=== PATIENT | male | born 1990 | race Two or more races ===

== ENCOUNTER 2019-12-14 11:41 | Emergency (ER) | payer SELFPAY ==
[~2019-12-14] VITALS: Ht 180.3 cm; Wt 70.0 kg
--- NOTE | 2019-12-14 12:25 | PHYS DOC ---
General Adult EDM: Chief Complaint: SHORTNESS OF BREATH HPI: HPI: Patient is a 29 year old male, brought to the emergency department by EMS with reports of an asthma attack. Per EMS on arrival patient's oxygen saturation was in the 80s, they gave him a breathing treatment and 125 mg of IV Solu-Medrol. The patient's breathing and lung sounds improved and patient oxygen saturation is 99% on arrival. Patient reports a history of asthma, he states that he has been out of his asthma medication, albuterol, for several months. He reports that in June of this year he had to be intubated because of his asthma. Patient denies any recent fever, cough, runny nose, chest pain, palpitations, abdominal pain, nausea, vomiting, diarrhea, or sore throat. He currently denies any complaints, he reports he is breathing better. He denies any pain at this time. Patient states he is unemployed and denies any COVID-19 symptoms or exposure. (BRYAN OLIVERA APRN) Review of Systems: Review of Systems: Constitutional: Denies fever or chills. [] Eyes: Denies change in visual acuity. [] HENT: Denies nasal congestion or sore throat. [] Respiratory: See HPI Cardiovascular: Denies chest pain or edema. [] GI: Denies abdominal pain, nausea, vomiting, or diarrhea. [] Musculoskeletal: Denies back pain or joint pain. [] Integument: Denies rash. [] Neurologic: Denies headache, focal weakness or sensory changes. [] (BRYAN OLIVERA APRN) Heart Score: Risk Factors: Risk Factors: DM, Current or recent (<one month) smoker, HTN, HLP, family history of CAD, obesity. Risk Scores: Score 0 - 3: 2.5% MACE over next 6 weeks - Discharge Home Score 4 - 6: 20.3% MACE over next 6 weeks - Admit for Clinical Observation Score 7 - 10: 72.7% MACE over next 6 weeks - Early Invasive Strategies (BRYAN OLIVERA APRN) Physical Exam: PE: Constitutional: Well developed, well nourished, no acute distress, non-toxic appearance. [] HENT: Normocephalic, atraumatic, bilateral external ears normal, oropharynx moist, no oral exudates, nose normal. [] Eyes: PERRLA, EOMI, conjunctiva normal, no discharge. [] Neck: Normal range of motion, no stridor. [] Cardiovascular:Heart rate regular rhythm Lungs & Thorax: Bilateral breath sounds clear to auscultation, Respirations even and unlabored, no retractions, no respiratory distress [] Skin: Warm, dry, no erythema, no rash. [] Back: No tenderness] Extremities: No cyanosis, no clubbing, ROM intact, no edema. [] Neurologic: Alert and oriented X 3, no focal deficits noted. [] Psychologic: Affect normal, judgement normal, mood normal. [] (BRYAN OLIVERA APRN) EKG: EKG: [] (BRYAN OLIVERA APRN) Radiology/Procedures: Radiology/Procedures: [] (BRYAN OLIVERA APRN) Course & Med Decision Making: Course & Med Decision Making Pertinent Labs and Imaging studies reviewed. (See chart for details) [] (BRYAN OLIVERA APRN) Dragon Disclaimer: Dragon Disclaimer: This electronic medical record was generated, in whole or in part, using a voice recognition dictation system. (BRYAN OLIVERA APRN) Departure Departure Impression: Primary Impression: Asthma with acute exacerbation Qualified Codes: J45.21 - Mild intermittent asthma with (acute) exacerbation Disposition: 01 HOME, SELF-CARE Condition: STABLE Patient Instructions: Asthma Attacks, Prevention, Asthma, Adult, [id number] Additional Instructions: Fill prescription(s) and use as directed. Avoid airway triggers such as smoke, fragrance, dust, and pollen. Follow-up with a primary care doctor for management of your asthma. Return to the ER if symptoms worsen. Scripts Prednisone (PREDNISONE) 50 Mg Tablet 1 TAB PO DAILY for 5 Days, #5 TAB 0 Refills start taking on 12/15/19 Prov: BRYAN OLIVERA APRN 12/14/19 Albuterol Sulfate (Proair Hfa) 8.5 Gm Hfa.aer.ad 2 PUFF IH PRN Q4-6HRS PRN for wheezing for 21 Days, #1 INHALER 0 Refills Prov: BRYAN OLIVERA APRN 12/14/19 Justicifation of Admission Dx: Justifications for Admission: Justification of Admission Dx: N/A (BRYAN OLIVERA APRN) Attending Signature Attending Signature I have participated in the care of this patient and I have reviewed and agree with all pertinent clinical information above including history, exam, and recommendations. (MICHAEL PRATT DO) BRYAN OLIVERA APRN Dec 14, 2019 12:25 MICHAEL PRATT DO Dec 14, 2019 15:11
[2019-12-14 12:43] VITALS: BP 143/98
[2019-12-14] MEDS ORDERED: ALBU2.5V8 IH (12:48)
[2019-12-14] MEDS ORDERED: PRED50TA PO (12:50)
== END 2019-12-14 13:13 | disposition home or self-care (01) ==
LOC: ER 11:41
DX: J45.21 Mild intermittent asthma with (acute) exacerbation (principal)
CPT/HCPCS: 99283

== ENCOUNTER 2021-04-30 21:03 | Emergency (ER) | payer SELFPAY ==
[~2021-04-30] VITALS: Ht 177.8 cm; Wt 70.0 kg
[~2021-04-30 21:03] MED LIST: ALBU2.5V8 IH; PRED50TA PO
[2021-04-30 21:26] VITALS: BP 128/71
--- NOTE | 2021-04-30 22:17 | PHYS DOC ---
Past Medical History Past Medical History: Asthma (KAROLINA NICOLAS APRN) Past Surgical History: No Surgical History (KAROLINA INCOLAS APRN) Smoking Status: Never Smoker Alcohol Use: Rarely (KAROLINA NICOLAS APRN) General Adult EDM: Chief Complaint: EARACHE/EAR PAIN HPI: HPI: Patient is a 31-year-old male who presents to the emergency department with complaint of bilateral ear pain for the past 6 days, patient denies taking any pain medications or trying other nonpharmacological pain therapies, patient denies recent fever or chills, denies nasal or chest congestion, denies throat pain or sore throat, denies chest pains or shortness of breath, denies rashes to his skin. Patient denies other physical complaints or physical concerns. Patient reports a 7 out of 10 pain. (KAROLINA NICOLAS APRN) Review of Systems: Review of Systems: 14 body systems of review of systems have been reviewed. See HPI for pertinent positives and negative responses, otherwise all other systems are negative, nonpertinent or noncontributory. Constitutional: Negative except as outlined in HPI above. Skin: Negative except as outlined in HPI above. Eyes: Negative except as outlined in HPI above. HENT: Negative except as outlined in HPI above. Respiratory: Negative except as outlined in HPI above. Cardiovascular: Negative except as outlined in HPI above. GI: Negative except as outlined in HPI above. : Negative except as outlined in HPI above. Musculoskeletal: Negative except as outlined in HPI above. Integument: Negative except as outlined in HPI above. Neurologic: Negative except as outlined in HPI above. Endocrine: Negative except as outlined in HPI above. Lymphatic: Negative except as outlined in HPI above. Psychiatric: Negative except as outlined in HPI above. (KAROLINA NICOLAS APRN) Heart Score: C/O Chest Pain: No Risk Factors: Risk Factors: DM, Current or recent (<one month) smoker, HTN, HLP, family history of CAD, obesity. Risk Scores: Score 0 - 3: 2.5% MACE over next 6 weeks - Discharge Home Score 4 - 6: 20.3% MACE over next 6 weeks - Admit for Clinical Observation Score 7 - 10: 72.7% MACE over next 6 weeks - Early Invasive Strategies (KAROLINA NICOLAS APRN) Allergies: Allergies: Allergies Coded Allergies Type Severity Reaction Last Updated Verified No Known Drug Allergies 04/30/21 No (KAROLINA NICOLAS APRN) Physical Exam: PE: Constitutional: Well developed, well nourished, no acute distress, non-toxic appearance. 31-year-old in no apparent distress. HENT: Normocephalic, atraumatic. Oropharynx moist, no deep tissue infectious process appreciated, no lymphadenopathy of the head or neck appreciated. Bilateral TMs intact, erythematous external auditory canals. Eyes: Conjunctiva normal, no discharge. Neck: Normal range of motion, no stridor. Cardiovascular: No cyanosis appreciated, distal cap refill less than 2 seconds. Lungs & Thorax: Patient is in no respiratory distress, no audible adventitious lung sounds appreciated. Abdomen: Nontender, no abnormalities noted. Skin: Warm, dry, no erythema, no rash. Back: No tenderness, no deformities. Extremities: No tenderness, no cyanosis, no clubbing, ROM intact, no edema. Neurologic: Alert and oriented X 3, normal motor function, normal sensory function, no focal deficits noted. Psychologic: Affect normal, judgement normal, mood normal. (KAROLINA NICOLAS APRN) Current Patient Data: Vital Signs: Vital Signs Date Time Temp Pulse Resp B/P (MAP) Pulse Ox O2 Delivery O2 Flow Rate FiO2 04/30/21 21:26 98.3 80 16 128/71 (90) 98 Room Air 98.3 (KAROLINA NICOLAS APRN) EKG: EKG: [] (KAROLINA NICOLAS APRN) Radiology/Procedures: Radiology/Procedures: [] (KAROLINA NICOLAS APRN) Course & Med Decision Making: Course & Med Decision Making Pertinent Labs and Imaging studies reviewed. (See chart for details) 31-year-old male, vital signs reviewed, resents emergency department concerning bilateral ear pain. Physical examination consistent with bilateral otitis externa. We will treat with Ciprodex prescription, pain medication in the ED. Discussed findings with patient, discussed medications and prescriptions with side effects, patient gave verbal understanding of and is amenable to ED discharge planning, strict follow-up with primary care for reevaluation, return to ER precautions or concerns, discussed with the patient all findings and diagnostic testing as well as the need to follow-up with their primary care provider for further evaluation and treatment or return to the ED if any new or worsening symptoms. Strict return precautions were also discussed at length, the patient voiced understanding and agreement with the discharge planning. The patient was nontoxic in appearance, in no apparent distress, and hemodynamically stable at the time of disposition. (KAROLINA NICOLAS APRN) Course & Med Decision Making I was not directly involved in the care of this patient while in the ED. I was immediately available for consultation for staff LAURENCE. I have reviewed documentation. (RAMESH GONZALEZ MD) Dragon Disclaimer: Dragon Disclaimer: This electronic medical record was generated, in whole or in part, using a voice recognition dictation system. (KAROLINA NICOLAS APRN) Departure Departure Impression: Primary Impression: Otitis externa Qualified Codes: H60.93 - Unspecified otitis externa, bilateral Disposition: HOME / SELF CARE / HOMELESS Condition: GOOD Referrals: NO PCP (PCP) Patient Instructions: Otitis Externa Additional Instructions: You were seen today in the emergency department for bilateral ear pain. Your physical examination revealed an outer ear infection of your ear canals. I have prescribed for you medication you will use by placing 4 drops in each ear twice a day for the next 10 days. I have attached to this document area health care providers and health clinics, please choose a provider for establishing health care soon and see this week for reevaluation. Return to the emergency department for worsening symptoms or other concerns. Thank you for visiting our Emergency Department. It was a pleasure taking care of you today in the emergency department and we appreciate you trusting us with your care. If any additional problems come up don't hesitate to return to visit us. Please follow up with your primary care provider so they can plan additional care if needed and know about the problem that you had. If symptoms worsen come back to the Emergency Department. Any concerning symptoms that start such as chest pain, shortness of air, weakness or numbness on one side of the body, running high fevers or any other concerning symptoms return to the ER. Scripts Ciprofloxacin/Hydrocortisone (CIPRO HC OTIC SUSPENSION) 10 Ml Drops.susp 3 DROP EACH EAR BID for bilateral externalear infectio, #10 ML 0 Refills Prov: KAROLINA NICOLAS APRN 04/30/21 KAROLINA NICOLAS APRN Apr 30, 2021 22:17 RAMESH GONZALEZ MD May 01, 2021 02:27
[2021-04-30] MEDS ORDERED: CIPR10DR EACH EAR (22:35)
[2021-04-30] MEDS ORDERED: IBUPROFEN 200 MG TABLET. PO ONE (22:45)
[2021-04-30] MEDS ORDERED: HYDROcodone/APAP 5/325MG 1 TAB TABLET PO ONE (22:45)
== END 2021-04-30 23:02 | disposition home or self-care (01) ==
LOC: ER 21:03
DX: H60.93 Unspecified otitis externa, bilateral (principal); J45.909 Unspecified asthma, uncomplicated
CPT/HCPCS: 99283